=== PATIENT | male | born 1975 | race Hispanic/Latino ===

== ENCOUNTER 2018-07-09 12:47 | Inpatient (IN) | payer SELFPAY ==
[~2018-07-09 12:47] MED LIST: ISOVUE-370 76%-LOCM 1 ML ONE
[2018-07-09 13:47] LABS: #Eosinphils 0.3 thou/uL (0.0-0.7); #Lymphocytes 2.2 thou/uL (1.20-3.40); #Monocytes 0.6 thou/uL (0.11-0.59); #Neutrophils 4.8 thou/uL (1.40-6.50); %Basophils 0.1 % (0.0-1.0); %Eosinophils 3.6 % (0.0-10.0); %Lymphocytes 28.2 % (21.0-51.0); %Monocytes 7.2 % (0.0-10.0); %Neutrophils 60.9 % (42.0-75.0); Mean Corpuscular HGB CONC 34.3 g/dL (32.0-36.0); Mean Corpuscular Hemoglobin 31.4 pg (27.0-31.0); Mean Corpuscular Volume 91.5 fL (78.0-98.0); Mean Platelet Volume 6.8 fL (7.4-10.4); Platelet Count 288 thou/uL (130-400); RBC Distribution Width 12.6 % (11.5-14.5); Red Blood Cell (RBC) Count 4.77 mill/uL (4.70-6.10); White Blood Cell (WBC) Count 7.9 thou/uL (4.8-10.8)
[2018-07-09] MEDS ORDERED: Ondansetron PF 4 MG/2 ML Vial ONE (13:56)
[2018-07-09] MEDS ORDERED: Morphine 4 MG/ML VIAL ONE ×2 (13:56→15:58)
[2018-07-09 14:12] LABS: ALT (SGPT) 16 U/L (8-55); AST (SGOT) 13 U/L (5-34); Albumin 4.2 g/dL (3.5-5.0); Alkaline Phosphatase 76 U/L (40-150); Anion Gap 12 mmol/L (10-20); BUN (Urea Nitrogen) 11 mg/dL (8.9-20.6); Bilirubin, Total 1.5 mg/dL (0.2-1.2); Calc. Creatinine Clearance 0 mL/min (70-130); Calcium 9.6 mg/dL (7.8-10.44); Carbon Dioxide 27 mmol/L (22-29); Chloride 102 mmol/L (98-107); Estimated GFR-MDRD 85; Globulin 3.7 g/dL (2.4-3.5); Glucose 129 mg/dL (70-105); Lipase 21 U/L (8-78); Potassium 3.9 mmol/L (3.5-5.1); Protein, Total 7.9 g/dL (6.0-8.3); Sodium 137 mmol/L (136-145)
--- NOTE | 2018-07-09 14:42 | CT ---
CT ABDOMEN AND PELVIS WITH IV CONTRAST: HISTORY: Abdominal pain, left side. FINDINGS: Lung bases are clear. There is fatty infiltration of the liver. No calcified gallstones are seen. The spleen pancreas adrenal glands and kidneys are normal. No free air or free fluid or lymphadenopathy seen in the abdomen or pelvis. A normal-appearing append ix is present. There is sigmoid diverticulosis with thickening of the sigmoid colon and pericolonic inflammatory dorene nges in the left lower quadrant consistent with diverticulitis. No evidence of loculated fluid collection is seen to suggest abscess formation. There are mild degenerative changes in the spine. IMPRESSION: 1. Sigmoid diverticulitis. No evidence of abscess formation. 2. Fatty liver.
[2018-07-09] MEDS ORDERED: Piperacillin/Tazobactam 3.375 GM VIAL ONE (15:09)
[2018-07-09 15:29] LABS: Bilirubin Negative (Negative); Blood, Urine Negative (Negative); Clarity CLEAR (Clear); Glucose, Urine (Dipstick) Negative (Negative); Leukocyte Negative (Negative); Nitrite Negative (Negative); Protein, Urine (Dipstick) Negative (Neg-Trace); Specific Gravity, Urine 1.045 (1.002-1.036); Urobilinogen 0.2 mg/dL (0.2-1.0); pH, Urine 7.5 (5.0-9.0)
[2018-07-09] MEDS ORDERED: Ondansetron ODT 4 MG TAB PO PRN (16:14)
[2018-07-09] MEDS ORDERED: Zolpidem Tartrate 5 MG TAB PO PRN (16:14)
[2018-07-09] MEDS ORDERED: Morphine 4 MG/ML VIAL SLOW IVP PRN (16:17)
[2018-07-09] MEDS ORDERED: hydrALAZINE 20 MG/ML VIAL SLOW IVP PRN (16:21)
[2018-07-09] MEDS ORDERED: Labetalol HCl 100 MG/20 ML VIAL SLOW IVP PRN (16:21)
--- NOTE | 2018-07-09 17:00 | HP ---
REASON FOR ADMISSION: [facility] admission. HISTORY OF PRESENT ILLNESS: The patient has been sick for a week, constant pain in the left lower quadrant, nausea. No emesis. He has had bowel movements. No diarrhea. He has had chills and sweats with present illness. He only came to the hospital because his made him. He did go to a clinic last week and received Cipro 500 b.i.d., Flagyl 250 t.i.d., and Tylenol No. 3 for pain, which he states he has taken. I did not count the pills. PAST MEDICAL HISTORY: None. CHRONIC MEDICATIONS: None. ALLERGIES: NONE. PAST SURGICAL HISTORY: None. FAMILY HISTORY: Father is with prostate cancer and diabetes. SOCIAL HISTORY: Single. Full code status. No next of kin given. Quit smoking 5 years ago. Rarely drinks alcohol. No illicit drugs. REVIEW OF SYSTEMS: GENERAL: No headaches, dizziness, or fainting EYES: No double vision, blurred vision, or flashing light. EAR, NOSE, AND THROAT: No ear pain or drainage. No nasal bleeding. No trouble swallowing. CARDIAC: No chest pain, orthopnea, or paroxysmal nocturnal dyspnea. RESPIRATION: No cough, wheezing, or asthma. GASTROINTESTINAL: See present illness, otherwise negative. GENITOURINARY: No hematuria or dysuria. MUSCULOSKELETAL: No pain or swelling in his arms or legs. NEUROLOGICAL: No strokes, seizures, or focal weakness. PSYCHIATRIC: No anxiety or depression. SKIN: No bruising, bleeding, or rash. HEME/LYMPH: No tender or swollen lymph nodes in axilla, cervical, or inguinal areas. PHYSICAL EXAMINATION: GENERAL: The patient is alert, oriented, cooperative, in obvious discomfort. VITAL SIGNS: Blood pressure 120/92, pulse 80, respirations 20, temperature 98. HEAD, EYES, EARS, NOSE, AND THROAT: Pupils are equal, round, and reactive to light. Extraocular movements are intact. Sclerae white. Tympanic membranes clear. Nose clear. Oral mucous membranes are dry. Dental hygiene is good. NECK: Supple without jugular venous distention, adenopathy, or thyromegaly. CHEST: Clear to auscultation and percussion. HEART: Regular rate and rhythm. First and second heart sounds are clear. There are no appreciated murmurs. No gallops. ABDOMEN: Tender most exquisitely in the left lower quadrant. No definite peritoneal findings, but he is quite tender. Bowel sounds were remarkably diminished. There was no palpable hepatosplenomegaly or mass. There were no bruits noted. EXTREMITIES: No cyanosis, clubbing, or edema. PULSES: Carotid, radial, femoral, and dorsalis pedis pulses intact and symmetric. HEME/LYMPH: No tender or swollen lymph nodes in the axilla, inguinal, or cervical area. No petechial hemorrhages in his mucous membranes or nailbeds. NEUROLOGICAL: Cranial nerves 2 through 12 are intact. Moves all extremities. Sensation intact. LABORATORY DATA: CBC is remarkably normal. White count of 7.9, no left shift, hemoglobin 15.0, platelet count 288,000. Comprehensive metabolic profile shows a bilirubin of 1.5 and a blood sugar of 129, otherwise totally normal. Urinalysis unremarkable. IMAGING DATA: CT scan of his abdomen shows sigmoid diverticulitis with no abscess formation and a fatty liver, reviewed by me. ADMITTING DIAGNOSES: 1. Abdominal pain. 2. Diverticulitis. 3. Hypertension. 4. Fatty liver. PLAN: Clear liquids as tolerated. IV Rocephin and Flagyl. IV fluids. IV morphine 4 mg q.3 hours p.r.n. for pain. Serial exams. Job ID: [id number]
[2018-07-09] MEDS: Sodium Chloride 0.9% 1,000 ML IV SCH (19:00)
[2018-07-09] MEDS: Acetaminophen 325 MG TAB PO PRN (20:07)
[2018-07-09] MEDS: cefTRIAXone\\ROCEPHIN 2 GM in Sodium Chloride 0.9% 100 ML IVPB SCH (20:19)
[2018-07-09] MEDS: Fentanyl 100 MCG/2 ML VIAL SLOW IVP PRN (21:21)
[2018-07-09] MEDS: metroNIDAZOLE 500 MG in Premix Bag 1 BAG IVPB SCH (21:29)
[2018-07-09 22:21] VITALS: BMI 41.8
[2018-07-10] MEDS: Sodium Chloride 0.9% 1,000 ML IV SCH ×3 (02:18→17:07)
[2018-07-10] MEDS: Fentanyl 100 MCG/2 ML VIAL SLOW IVP PRN ×2 (04:25→08:13)
[2018-07-10] MEDS: metroNIDAZOLE 500 MG in Premix Bag 1 BAG IVPB SCH ×3 (06:00→22:09)
[2018-07-10 06:29] LABS: #Basophils 0.1 thou/uL (0.0-0.2); #Eosinphils 0.3 thou/uL (0.0-0.7); #Lymphocytes 2.1 thou/uL (1.20-3.40); #Monocytes 0.7 thou/uL (0.11-0.59); #Neutrophils 4.8 thou/uL (1.40-6.50); %Basophils 0.9 % (0.0-1.0); %Eosinophils 4.1 % (0.0-10.0); %Lymphocytes 26.3 % (21.0-51.0); %Monocytes 8.1 % (0.0-10.0); %Neutrophils 60.6 % (42.0-75.0); Hemoglobin 14.3 g/dL (14.0-18.0); Mean Corpuscular HGB CONC 33.3 g/dL (32.0-36.0); Mean Corpuscular Hemoglobin 30.6 pg (27.0-31.0); Mean Corpuscular Volume 91.9 fL (78.0-98.0); Mean Platelet Volume 6.9 fL (7.4-10.4); Platelet Count 265 thou/uL (130-400); RBC Distribution Width 12.6 % (11.5-14.5); Red Blood Cell (RBC) Count 4.67 mill/uL (4.70-6.10)
[2018-07-10 06:51] LABS: Anion Gap 11 mmol/L (10-20); BUN (Urea Nitrogen) 8 mg/dL (8.9-20.6); Calc. Creatinine Clearance 212 mL/min (70-130); Calcium 8.9 mg/dL (7.8-10.44); Carbon Dioxide 24 mmol/L (22-29); Chloride 103 mmol/L (98-107); Estimated GFR-MDRD Greater than 90; Glucose 103 mg/dL (70-105); Potassium 3.7 mmol/L (3.5-5.1); Sodium 134 mmol/L (136-145)
[2018-07-10] MEDS: Enoxaparin Sodium 40 MG/0.4 ML SYRINGE SC SCH (08:13)
[2018-07-10] MEDS ORDERED: Prevnar 13-Val Conj/PF 0.5 ML SYRINGE IM ONE (09:00)
[2018-07-10] MEDS: Acetaminophen 325 MG TAB PO PRN (11:45)
--- NOTE | 2018-07-10 15:58 | PDOC.PN ---
- Subjective Encounter Start Date: 07/10/18 Encounter Start Time: 08:40 Pt seen for followup re: diverticulitis. says he feels better. Vomited today AM. - Objective Resuscitation Status - Order Detail: 07/09/18 16:14 Resuscitation Status Routine Resuscitation Status: FULL: Full Resuscitation MAR Reviewed: Yes Vital Signs & Weight: Vital Signs (12 hours) Temp Pulse Resp BP Pulse Ox 07/10/18 11:25 98.3 F 70 18 116/79 95 07/10/18 08:00 95 07/10/18 07:56 97.6 F 70 16 137/88 95 07/10/18 04:00 98.3 F 71 16 121/79 98 Weight Admit Weight 259 lb 4 oz Weight 259 lb 4 oz I&O: 07/09/18 07/10/18 07/11/18 06:59 06:59 06:59 Intake Total 1200 Output Total 1200 Balance 0 Result Diagrams: 07/10/18 06:12 07/10/18 06:12 Additional Labs: Labs reviewed by me Phys Exam - Physical Examination Morbid obesity HEENT: moist MMs, sclera anicteric, oral pharynx no lesions, 2+ tonsils Neck: no nodes, no JVD, supple, full ROM Respiratory: clear to auscultation bilateral Cardiovascular: RRR, no rub S1, S2 Gastrointestinal: soft, positive bowel sounds Mild LLQ tenderness, no guarding or rigidity Neurological: moves all 4 limbs Psychiatric: normal affect, A&O x 3 Dx/Plan (1) Acute diverticulitis Code(s): K57.92 - DVTRCLI OF INTEST, PART UNSP, W/O PERF OR ABSCESS W/O BLEED Status: Acute Comment: Improving, continue IV ceftriaxone and metronidazole. Follow cultures. (2) Abdominal pain Code(s): R10.9 - UNSPECIFIED ABDOMINAL PAIN Status: Acute Comment: Improved , trial Tylenol #3 and tramadol (3) Morbid obesity Code(s): E66.01 - MORBID (SEVERE) OBESITY DUE TO EXCESS CALORIES Status: Chronic Comment: appreciate dietitian input - Plan * . Review of Systems - Review of Systems Constitutional: negative: fever, chills, sweats, weakness, malaise Cardiovascular: negative: chest pain, palpitations, orthopnea, paroxysmal nocturnal dyspnea, edema, light headedness Gastrointestinal: Nausea, Abdominal Pain. negative: Vomiting, Diarrhea, Constipation, Melena, Hematochezia Genitourinary: negative: Dysuria, Frequency, Incontinence, Hematuria, Retention Skin: negative: Rash, Lesions, Terry, Bruising - Medications/Allergies Allergies/Adverse Reactions: Allergies Allergy/AdvReac Type Severity Reaction Status Date / Time No Known Allergies Allergy Verified 07/09/18 20:16 Medications: Current Medications Acetaminophen (Tylenol) 650 mg PO Q4H PRN PRN Reason: Headache/Fever/Mild Pain (1-3) Last Admin: 07/10/18 11:45 Dose: 650 mg Enoxaparin Sodium (Lovenox) 40 mg SC 0900 [facility] Last Admin: 07/10/18 08:13 Dose: 40 mg Fentanyl (Sublimaze) 25 mcg SLOW IVP Q4H PRN PRN Reason: Severe Pain (7-10) Last Admin: 07/10/18 08:13 Dose: 25 mcg Hydralazine HCl (Apresoline) 10 mg SLOW IVP Q4H PRN PRN Reason: SBP > 180 and HR < 70 Ceftriaxone Sodium 2 gm/ (Sodium Chloride) 100 mls @ 200 mls/hr IVPB Q24HR [facility] Last Admin: 07/09/18 20:19 Dose: 100 mls Metronidazole 500 mg/ Device 100 mls @ 100 mls/hr IVPB Q8HR [facility] Last Admin: 07/10/18 13:21 Dose: 100 mls Sodium Chloride (Normal Saline 0.9%) 1,000 mls @ 125 mls/hr IV .Q8H [facility] Last Admin: 07/10/18 08:13 Dose: 1,000 mls Labetalol HCl (Normodyne) 20 mg SLOW IVP Q4H PRN PRN Reason: SBP > 180 and HR >/= 70 Ondansetron HCl (Zofran Odt) 4 mg PO Q6H PRN PRN Reason: Nausea/Vomiting Last Admin: 07/10/18 08:48 Dose: 4 mg Zolpidem Tartrate (Ambien) 5 mg PO HSPRN PRN PRN Reason: Insomnia
[2018-07-10] MEDS ORDERED: Acetaminophen/Codeine 30-300mg Tablet PO PRN ×2 (17:00→18:00)
[2018-07-10] MEDS: cefTRIAXone\\ROCEPHIN 2 GM in Sodium Chloride 0.9% 100 ML IVPB SCH (17:07)
[2018-07-10] MEDS ORDERED: traMADol HCl 50 MG TAB PO PRN ×2 (18:00)
[2018-07-11] MEDS: Sodium Chloride 0.9% 1,000 ML IV SCH ×2 (01:00→09:27)
[2018-07-11] MEDS: metroNIDAZOLE 500 MG in Premix Bag 1 BAG IVPB SCH (05:27)
[2018-07-11] MEDS: Enoxaparin Sodium 40 MG/0.4 ML SYRINGE SC SCH (08:27)
[2018-07-11] MEDS: Acetaminophen 325 MG TAB PO PRN (09:09)
[2018-07-11 11:29] VITALS: BP 149/98; TEMP 98.7
[2018-07-11] MEDS ORDERED: metroNIDAZOLE 500 MG TAB PO SCH (15:00)
[2018-07-11] MEDS ORDERED: Ciprofloxacin 500 MG TAB PO SCH (20:00)
--- NOTE | 2018-07-12 04:31 | DIS ---
DATE OF ADMISSION: 07/09/2018 DATE OF DISCHARGE: 07/11/2018 PRIMARY CARE PROVIDER: None. DISCHARGE DIAGNOSIS: Acute sigmoid diverticulitis. CONDITION OF PATIENT ON THE DAY OF DISCHARGE: Stable. I assessed, Mr. Ca on the day of discharge. He denies any abdominal pain. He denies any fevers. Vital signs are stable. S1 and S2 are heard, regular. Lungs are clear to auscultation bilaterally. DISCHARGE MEDICATIONS: 1. Ciprofloxacin 500 mg 2 times a day for 10 days. 2. Metronidazole 500 mg 3 times a day for 10 days. 3. Also, the patient is being discharged on Tylenol No. 3 p.r.n. HOSPITAL COURSE: Mr. Ca is a pleasant, 42-year-old gentleman who was admitted to [facility] on July 01, 2018, for acute sigmoid diverticulitis. Please refer to Dr. Linares' history and physical note dated July 09, 2018, for further details. He was treated with intravenous ceftriaxone and intravenous metronidazole. He is being discharged home on ciprofloxacin and metronidazole orally. Please note that the patient filled the prescriptions for ciprofloxacin and metronidazole prior to this admission. However, he only took 1 dose of ciprofloxacin and none of the metronidazole. He has been advised to complete those prescriptions after he goes home. DISCHARGE DESTINATION: Home. TIME SPENT: Total amount of time spent coordinating this discharge: 32 minutes. Job ID: [id number]
== END 2018-07-11 11:39 | disposition home or self-care (01) | DRG 392 ==
LOC: ERS 12:47 → T4-B 18:05
PROVIDERS: ADMIT Internal Medicine; ATTEND Internal Medicine
DX: K57.32 Diverticulitis of large intestine without perforation or abscess without bleeding (principal); Z68.41 Body mass index [BMI] 40.0-44.9, adult; K76.0 Fatty (change of) liver, not elsewhere classified; I10 Essential (primary) hypertension; E66.01 Morbid (severe) obesity due to excess calories; Z87.891 Personal history of nicotine dependence
CPT/HCPCS: 36415; 74177; 80048; 80053; 81003; 83690; 85025; 90471; 90670; 96361; 96365; 96375; 96376; G0009; J0696; J1650; J2270; J2405; J2543; J3010; J3490; Q0162; Q9966

== ENCOUNTER 2024-01-01 22:21 | Emergency (ER) | payer SELFPAY ==
[2024-01-01 22:55] LABS: #Basophils 0.03 10x3/uL (0.0-0.2); %Basophils 0.4 % (0.0-1.0); %Eosinophils 1.9 % (0.0-10.0); %Lymphocytes 22.3 % (21.0-51.0); %Monocytes 8.6 % (0.0-10.0); %Neutrophils 66.4 % (42.0-75.0); Hematocrit 50.2 % (42.0-52.0); Hemoglobin 16.7 g/dL (14.0-18.0); Mean Corpuscular HGB CONC 33.3 g/dL (32.0-36.0); Mean Corpuscular Volume 93.1 fL (78.0-98.0); Mean Platelet Volume 9.7 fL (7.4-10.4); Platelet Count 222 10x3/uL (130-400); RBC Distribution Width 13.3 % (11.5-14.5); Red Blood Cell (RBC) Count 5.39 mill/uL (4.70-6.10)
[2024-01-01 23:20] LABS: ALT (SGPT) 24 U/L (8-55); AST (SGOT) 20 U/L (5-34); Albumin 3.9 g/dL (3.5-5.0); Alkaline Phosphatase 97 U/L (40-110); Anion Gap 15 mmol/L (10-20); BUN (Urea Nitrogen) 12 mg/dL (8.9-20.6); Bilirubin, Total 1.7 mg/dL (0.2-1.2); Calc. Creatinine Clearance 0 mL/min (70-130); Calcium 9.4 mg/dL (7.8-10.44); Carbon Dioxide 20 mmol/L (22-29); Chloride 103 mmol/L (98-107); Estimated GFR 90; Globulin 3.8 g/dL (2.4-3.5); Glucose 275 mg/dL (70-105); Potassium 3.7 mmol/L (3.5-5.1); Protein, Total 7.7 g/dL (6.0-8.3); Sodium 134 mmol/L (136-145)
[2024-01-01 23:25] LABS: Troponin I Less than 0.010 ng/mL (< 0.028)
[2024-01-01] MEDS ORDERED: Acetaminophen 500 MG TAB ONE (23:54)
== END 2024-01-02 00:10 | disposition home or self-care (01) ==
LOC: ERS 22:21
DX: I10 Essential (primary) hypertension (principal); Z55.6 Problems related to health literacy; Z87.891 Personal history of nicotine dependence
CPT/HCPCS: 36415; 80053; 84484; 85025; 93005; 99285